=== PATIENT | female | born 1955 | race Caucasian/White ===

== ENCOUNTER 2017-06-14 12:31 | Day surgery (SDC) | payer OTHER ==
[~2017-06-14] VITALS: Ht 152.4 cm; Wt 81.6 kg
[2017-06-14] MEDS ORDERED: NORCO 325 MG-101 TAB PO (13:28)
[2017-06-14 13:37] VITALS: BP 141/77; PULSE 74; TEMP 97.9
[2017-06-14 20:16] VITALS: TEMP 98
[2017-06-14 20:45] VITALS: BP 119/55; PULSE 72
[2017-06-14 21:00] VITALS: BP 120/53; PULSE 70
[2017-06-14 21:15] VITALS: BP 122/46; PULSE 84
[2017-06-14 21:30] VITALS: BP 115/51; PULSE 73
== END 2017-06-14 22:30 | disposition home or self-care (01) ==
LOC: SDCO 12:31 → SURG 21:08 → SDCO 22:30
DX: Q75.4 Mandibulofacial dysostosis (principal); K05.6 Periodontal disease, unspecified; K01.1 Impacted teeth; K02.9 Dental caries, unspecified; M54.5 Low back pain; G43.909 Migraine, unspecified, not intractable, without status migrainosus; M25.512 Pain in left shoulder; I10 Essential (primary) hypertension; E78.5 Hyperlipidemia, unspecified; R31.9 Hematuria, unspecified
CPT/HCPCS: OP; J0690; J1100; J1885; J2250; J2405; J2704; J3010; J7030; J7120

== ENCOUNTER → 2019-07-22 | Outpatient (CLI) | payer OTHER ==
[~2019-07-22] MED LIST: NORCO 325 MG-101 TAB PO
== END ==
LOC: MHCPAIN 09:29
DX: M53.3 Sacrococcygeal disorders, not elsewhere classified (principal); M54.16 Radiculopathy, lumbar region; M96.1 Postlaminectomy syndrome, not elsewhere classified
CPT/HCPCS: G0463

== ENCOUNTER 2023-12-10 06:58 | Day surgery (SDC) | payer OTHER ==
[~2023-12-10] VITALS: Ht 152.4 cm; Wt 79.1 kg
[2023-12-10] MEDS ORDERED: Ondansetron 4 MG/2 ML VIAL IV PRN ×2 (07:45→12:15)
[2023-12-10] MEDS ORDERED: hydrALAZINE 20 MG/ML 1 ML VIAL IV PRN (07:45)
[2023-12-10] MEDS ORDERED: droPERidol 2.5 MG/ML 2 ML VIAL IV PRN (07:45)
[2023-12-10] MEDS ORDERED: fentaNYL 50 MCG/ML 1 ML SYRINGE/VIAL [PACU/SDC ONLY] IV PRN (07:45)
[2023-12-10] MEDS ORDERED: HYDROmorphone 1 MG/1 ML SYRINGE [PACU/SDC ONLY] IV PRN (07:45)
[2023-12-10] MEDS ORDERED: LR 1,000 ML IV SCH (08:15)
[2023-12-10] MEDS ORDERED: fentaNYL 50 MCG/ML 2 ML VIAL ONE ×2 (08:19→11:13)
[2023-12-10] MEDS ORDERED: Ondansetron 4 MG/2 ML VIAL ONE (08:20)
[2023-12-10] MEDS ORDERED: dexAMETHasone 10 MG/ML VIAL ONE (08:20)
[2023-12-10] MEDS ORDERED: Glycopyrrolate 0.2 MG/ML 1 ML VIAL ONE (08:20)
[2023-12-10] MEDS ORDERED: NS 10 ML IV ONE (08:20)
[2023-12-10] MEDS ORDERED: Ketorolac 30 MG/ML VIAL ONE (08:20)
[2023-12-10] MEDS ORDERED: LASIX 20MG TABL20 MG PO (08:23)
[2023-12-10] MEDS ORDERED: ADIPEX-P37.5 M2 PO (08:24)
[2023-12-10] MEDS ORDERED: ROBAXIN 50500 MG/TAB PO (08:26)
[2023-12-10 08:43] VITALS: BP 135/70; PULSE 66; TEMP 98.4
[2023-12-10] MEDS ORDERED: Lidocaine 2% w EPI (1:100,000) 20 ML Multi-Dose VIAL IJ ONE (12:00)
[2023-12-10] MEDS ORDERED: NORCO 325 MG-51 TAB PO (12:11)
[2023-12-10 12:45] VITALS: BP 125/79; PULSE 66; TEMP 97.5
[2023-12-10 13:00] VITALS: BP 123/58; PULSE 64
[2023-12-10 13:15] VITALS: BP 132/55; PULSE 64
[2023-12-10 13:30] VITALS: BP 129/70; PULSE 64
--- NOTE | 2023-12-10 13:40 | NUR ---
1245 RETURNS TO ROOM 3 PER CART WIKTH HOB ELEVATED 40 DEGREES. AWAKE, ALERT. RESP UNLABORED. VITAL SIGNS OBTAINED. DRESSING RIGHT FLANK AREA AND RIGHT GROIN. BOTH CLEAN DRY AND INTACT, NO REDNESS OR EDEMA OBSERVED. DENIES PAIN. CALL LIGHT AT SIDE. HERE. 1300 HOB ELEVATED 75 DEGREES. TOLERATES PO SODA WITHOUT NAUSEA [address] BATHROOM WITH STANDBY ASSIST; VOIDS, THEN RETURNS TO CART 1315 DISCHARGE INSTRUCTIONS REVIEWE. PATIENT VERBALIZES UNDERSTANDING. COPY PROVIDED IN DISCHARGE FOLDER. 1330 SITS ON EDGE OF CART. DRESSES SELF
== END 2023-12-10 13:40 | disposition home or self-care (01) ==
LOC: SDCO 06:58
DX: C43.59 Malignant melanoma of other part of trunk (principal); C77.4 Secondary and unspecified malignant neoplasm of inguinal and lower limb lymph nodes
CPT/HCPCS: J0665; J0690; J1100; J1885; J2405; J2704; J3010; J7120; Q9968

== ENCOUNTER → 2024-01-22 | Outpatient (CLI) | payer OTHER ==
[~2024-01-22] VITALS: Ht 152.4 cm; Wt 76.1 kg
[~2024-01-22] MED LIST changes: +ADIPEX-P37.5 M2 PO; +LASIX 20MG TABL20 MG PO; +NORCO 325 MG-51 TAB PO; +ROBAXIN 50500 MG/TAB PO
[2024-01-22 11:33] VITALS: BP 132/88; PULSE 95; TEMP 98.8
[2024-01-22 12:37] VITALS: BP 142/81; PULSE 87
[2024-01-22 12:52] VITALS: BP 123/81; PULSE 83
--- NOTE | 2024-01-22 13:35 | NUR ---
PATIENT COMPLETED HER RECOVERY PERIOD WITHOUT ANY ISSUES. ALL NEEDS MET. ESCORTED PATIENT TO THE PATIENT ENTRANCE VIA WHEELCHAIR WITH ALL OF PER PERSONAL ITEMS AND PAPERWORK. BANDAGE REMAINS CLEAN, DRY, AND INTACT. PATIENT DENIES ANY PAIN AT THIS TIME. PATIENT ABLE TO GET INTO THE FRONT PASSENGER SEAT OF HER RIDE WITHOUT ANY ASSISTANCE OR ISSUE.
== END ==
LOC: COL.RAD 11:10
DX: C43.59 Malignant melanoma of other part of trunk (principal)
CPT/HCPCS: 32108